=== PATIENT | female | born 1975 | race Caucasian/White ===

== ENCOUNTER 2021-10-23 21:06 | Emergency (ER) | payer MEDICARE, OTHER, MEDICAID, SELFPAY ==
[2021-10-23 21:18] VITALS: BP 151/89; PULSE 96; RESP 16; TEMP 36.4; O2SAT 100
[2021-10-23 23:02] VITALS: BP 135/75; PULSE 88; TEMP 36.6; O2SAT 100
--- NOTE | 2021-10-23 23:27 | ED.EAR ---
HPI - Ear Problem General Chief complaint: Ear Stated complaint: ear drainage foul smelling Time Seen by Provider: 10/23/21 21:28 History of Present Illness HPI Narrative: 46-year-old female history of chronic left otitis media and for tympanic membrane presents to the emergency room with left ear pain. Patient states that she recently returned from [place] where she was diagnosed with otitis media and was completed a course of Augmentin. States 5 days ago she went to emergency room in [facility], and was diagnosed with perforated TM and otitis media. Patient was again put on another course of Augmentin. Patient states that she has been on this course of Augmentin for 5 days and is not getting any resolution of symptoms. Patient has noticed foul-smelling purulent drainage from her left ear. Patient states that she is under the care of an ENT in [facility]. Related Data Home Medications Medication Instructions Recorded Confirmed cyanocobalamin (vitamin B-12) 1,000 mcg PO DAILY 04/24/20 1,000 mcg capsule duloxetine 60 mg capsule,delayed 60 mg PO DAILY 04/24/20 release (Cymbalta) ergocalciferol (vitamin D2) 1,250 1,250 mcg PO MONTHLY 04/24/20 mcg (50,000 unit) capsule (Drisdol) hydrocodone 10 mg-acetaminophen 15 ml PO Q12H PRN 04/24/20 325 mg/15 mL (15 mL) oral solution omeprazole 40 mg capsule,delayed 40 mg PO DAILY 04/24/20 release omeprazole 40 mg capsule,delayed 40 mg PO DAILY 04/24/20 release ondansetron 4 mg disintegrating 4 mg PO Q8H 04/24/20 tablet oxcarbazepine 150 mg tablet 150 mg PO DAILY 04/24/20 prazosin 2 mg capsule 2 mg PO QPM 04/24/20 rizatriptan 10 mg tablet 10 mg PO ONCE 04/24/20 tizanidine 4 mg capsule 4 mg PO TID PRN 04/24/20 topiramate 200 mg capsule 200 mg PO DAILY 04/24/20 sprinkle,extended release 24 hr umeclidinium 62.5 mcg/actuation 1 inh inhalation DAILY 04/24/20 blister powder for inhalation (Incruse Ellipta) Allergies Allergy/AdvReac Type Severity Reaction Status Date / Time cephalexin [From Keflex] Allergy Intermediate Unknown Verified 04/29/20 12:44 sumatriptan Allergy Mild unknown Verified 04/29/20 12:44 metoclopramide [From Reglan] Allergy Unknown Verified 04/29/20 12:44 Review of Systems Review of Systems: CONSTITUTIONAL: Denies fever, chills, or sweats. EYES: Denies visual changes, redness, or discharge. ENT: Reports left otalgia CARDIOVASCULAR: Denies chest pain, palpitations, or edema. RESPIRATORY: Denies cough or dyspnea. GASTROINTESTINAL: Denies abdominal pain, nausea, vomiting, or diarrhea. GENITOURINARY: Denies dysuria or hematuria. SKIN: Denies rash or itching. MUSCULOSKELETAL: Denies back pain, joint pain, or myalgia. NEUROLOGIC: Denies headache, numbness, dizziness, or weakness. PSYCHIATRIC: Denies anxiety or depression. Exam Narrative: GENERAL: Well-appearing, well-nourished, no physical limitations, and in no acute distress. HEAD: Normocephalic, atraumatic. EYES: Conjunctivae normal, PERRLA and EOMI. ENT: Perforated left eardrum, purulent drainage noted left ear canal no tragal tenderness NECK: Supple. No adenopathy or masses. CHEST: Clear to auscultation. No respiratory distress. No wheezes rales or rhonchi. No tenderness. HEART: Regular rate and rhythm. No murmur heard. Normal peripheral pulses. EXTREMITIES: Normal range of motion. No edema. No clubbing or cyanosis SKIN: Warm, dry, no rash. No noted wounds NEURO: No focal deficits. Alert and oriented x3. MAEW. CN's II-XI intact bilaterally, normal gait PSYCH: Cooperative. Normal mood and affect. Course Vital Signs Vital signs: Vital Signs Temperature 36.4 C 10/23/21 21:18 Pulse Rate 96 10/23/21 21:18 Respiratory Rate 16 10/23/21 21:18 Blood Pressure 151/89 H 10/23/21 21:18 Pulse Oximetry 100 10/23/21 21:18 Oxygen Delivery Room Air 10/23/21 21:18 Temperature 36.6 C 10/23/21 23:02 Pulse Rate 88 10/23/21 23:02 Respiratory R
[2021-10-23] MEDS: CLINDAMYCIN HCL 150 MG CAP 300 MG PO (23:55)
[2021-10-23] MEDS: KETOROLAC (*BKC) 60 MG/2 ML VIAL IM (23:56)
== END 2021-10-24 00:05 | disposition home or self-care (01) ==
LOC: ANHED 23:35
PROVIDERS: Emergency Provider Nurse Practitioner Family
DX: H66.92 Otitis media, unspecified, left ear (principal)
CPT/HCPCS: 96372; 99283; A9270; J1885